=== PATIENT | male | born 1945 | race Asian ===

== ENCOUNTER 2023-05-01 03:01 | Emergency (ER) | payer MEDICARE ==
[~2023-05-01] VITALS: Ht 162.6 cm; Wt 73.6 kg
[2023-05-01 03:04] VITALS: TEMP 98.7
[2023-05-01] MEDS ORDERED: ACETAMINOPHEN 500 MG TABLET PO ONE (03:30)
[2023-05-01] MEDS ORDERED: DOXY-354 PO (04:12)
[2023-05-01] MEDS ORDERED: DOXYCYCLINE HYCLATE 100 MG TABLET PO ONE (04:15)
[2023-05-01 04:50] VITALS: BP 142/71; PULSE 79; RESP 19
== END 2023-05-01 04:52 | disposition home or self-care (01) ==
LOC: EMS 03:02
DX: L03.031 Cellulitis of right toe (principal); E11.9 Type 2 diabetes mellitus without complications; I10 Essential (primary) hypertension; Z98.890 Other specified postprocedural states
CPT/HCPCS: 99283